=== PATIENT | female | born 1960 | race Caucasian/White ===

== ENCOUNTER 2018-06-03 22:57 | Emergency (ER) | payer MEDICARE, MEDICAID ==
[~2018-06-03] VITALS: Ht 162.6 cm; Wt 61.0 kg
[~2018-06-03 22:57] MED LIST: ALBU18HF2 IH; DOL10T PO; IPRA3AMP IH; PANT40TA39 PO; PHEN-873 PO; PRED10TA PO; PRED20TA PO
[2018-06-03 23:09] VITALS: BP 166/85
[2018-06-04] MEDS ORDERED: ketorolac trometh. 30mg/ml inj. IM ONE (00:25)
== END 2018-06-04 01:01 | disposition home or self-care (01) ==
LOC: ER 22:58
DX: R07.81 Pleurodynia (principal); J44.9 Chronic obstructive pulmonary disease, unspecified; G89.29 Other chronic pain; Z90.49 Acquired absence of other specified parts of digestive tract; Z98.51 Tubal ligation status; Z88.0 Allergy status to penicillin; Z88.1 Allergy status to other antibiotic agents; Z79.899 Other long term (current) drug therapy
CPT/HCPCS: 71046; 96372; 99284; J1885